=== PATIENT | male | born 1965 | race Caucasian/White ===

== ENCOUNTER 2017-01-14 20:14 | Inpatient (IN) | payer OTHER ==
[~2017-01-14] VITALS: Ht 157.5 cm; Wt 55.8 kg
[~2017-01-14 20:14] MED LIST: AERONEB GO NEB1 EACH MC; AMOX TR-K CLV1 EAC4 PO; COMBIVENT RESPIM4 GM IH; Chronulac,Cephulac,E PO; DILAUDID2 MG PO; DISKETS40 MG PO; DOXYCYCLINE HY100 M3 PO; DUONEB 2.5-0.5 M3 ML AEROSOL; FLOVENT 22120 INHALA IH; KLONOPIN2 MG PO; METHADONE10 MG PO; Naprosyn PO; OXYCODONE30 MG PO; OXYCONTIN30 MG PO; PLAVIX75 MG PO; PREDNISONE10 MG PO; PriLOSEC PO; Valium PO; XANAX2 MG PO; Z-QUIL PO
[2017-01-14 21:16] LABS: BASE EXCESS -1.2 mEq/L (-3 to +3); BICARBONATE 24.8 mEq/L (22-26); CARBOXY HGB 4.5 % (0-5); COMMENTS - BLOOD GASES C+; DEVICE NC; METHEMOGLOBIN 1.4 % (0-1.5); O2 FLOW 2 L/MIN; PCO2 45 mm Hg (35-45); PO2 42 mm Hg (80-100); SITE LB; pH 7.35 (7.35-7.45)
[2017-01-14 21:21] LABS: HEMATOCRIT 50.6 % (38.0-50.0); MCH 29.9 PG (29.0-34.0); MCV 99.6 FL (86-99); MEAN PLAT.VOLUME 9.8 uM^3 (9.0-12.4); PLATELET COUNT 501 K/uL (156-360); RBC DIS.WIDTH-CV 13.7 % (11.8-14.6); RBC DIS.WIDTH-SD 49.3 % (39-53); RED BLOOD COUNT 5.08 M/uL (4.00-5.50); WHITE BLOOD COUNT 16.5 K/uL (4.1-10.2)
[2017-01-14 21:24] LABS: EOSINOPHIL (%) 0 % (0-5); IMMATURE GRANULOCYTE (%) 0.2 % (0.0-0.7); IMMATURE GRANULOCYTE COUNT 0.3 K/uL; MONOCYTE (%) 7.4 % (3-12); MONOCYTE COUNT 1.2 K/uL (0-0.8); NEUTROPHIL (%) 86.3 % (45-76); NEUTROPHIL COUNT 14.2 K/uL (1.8-6.4)
[2017-01-14 21:48] LABS: CHLORIDE 100 mEq/L (99-109); POTASSIUM 4.6 mEq/L (3.7-5.4); SODIUM 144 mEq/L (136-147)
[2017-01-14 21:50] LABS: GLUCOSE 192 mg/dL (70-99)
[2017-01-14 21:51] LABS: ANION GAP 20 MEQ/L (2-14)
[2017-01-14 21:52] LABS: TOTAL BILIRUBIN 0.5 mg/dL (0.0-1.0)
[2017-01-14 21:53] LABS: SERUM ETHYL ALCOHOL < 10 mg/dL
[2017-01-14 21:54] LABS: ALKALINE PHOSPHATASE 101 IU/L (3-129); GFR ESTIMATE (CALCULATED) 57 mL/min/
[2017-01-14 21:56] LABS: UREA NITROGEN (BUN) 24 mg/dL (9-23)
[2017-01-14 21:57] LABS: SALICYLATE < 5.0 MG/DL (15-30)
[2017-01-14 21:58] LABS: CREATINE KINASE 960 IU/L (1-294); TOTAL CK 960 IU/L (1-294)
[2017-01-14 22:03] LABS: CK-MB 10.3 ng/mL (0.0-4.9)
[2017-01-14 23:06] LABS: ADD MEDTOX COMMENT Y; AMPHETAMINE NEGATIVE (500 ng/mL); BARBITURATES NEGATIVE (200 ng/mL); BENZODIAZEPINES PRESUMPTIVE POSITIVE (150 ng/mL); COCAINE PRESUMPTIVE POSITIVE (150 ng/mL); INTERNAL CONTROLS VALID? YES; METHADONE PRESUMPTIVE POSITIVE (200 ng/mL); METHAMPHETAMINE NEGATIVE (500 ng/mL); OPIATES (MORPHINE) PRESUMPTIVE POSITIVE (100 ng/mL); OXYCODONE PRESUMPTIVE POSITIVE (100 ng/mL); PHENCYCLIDINE NEGATIVE (25 ng/mL); PROPOXYPHENE NEGATIVE (300 ng/mL); THC CANNABINOIDS NEGATIVE (50 ng/mL); TRICYCLIC ANTIDEPRESSANTS NEGATIVE (300 ng/mL)
[2017-01-15] VITALS (9 sets, daily range): BP systolic 111–149; BP diastolic 56–94
[2017-01-15 01:43] LABS: TROP-I INTERPRETATION NEGATIVE; TROPONIN-I 0.02 ng/mL (0.0-0.30)
[2017-01-15 04:27] LABS: BENZODIAZEPINES, URINE SCREEN POSITIVE (200 ng/mL)
[2017-01-15] MEDS ORDERED: OXYCODONE HCL10 MG PO (05:08)
[2017-01-15] MEDS ORDERED: KLONOPIN2 MG PO (05:10)
[2017-01-15] MEDS ORDERED: METHADONE1 MG/1 ML PO (05:13)
[2017-01-15 06:51] LABS: METH RESISTANT S AUREUS PCR NEGATIVE (NEGATIVE)
[2017-01-15 06:52] LABS: PROBE CHECK PASS; SPECIMEN PROCESSING CONTROL PASS
[2017-01-15 07:39] LABS: HEMATOCRIT 50.9 % (38.0-50.0); MCHC 31.6 G/DL (30.0-36.0); MCV 98.1 FL (86-99); MEAN PLAT.VOLUME 10.1 uM^3 (9.0-12.4); PLATELET COUNT 405 K/uL (156-360); RBC DIS.WIDTH-CV 13.5 % (11.8-14.6); RBC DIS.WIDTH-SD 48.1 % (39-53); RED BLOOD COUNT 5.19 M/uL (4.00-5.50)
[2017-01-15 08:28] LABS: TROP-I INTERPRETATION NEGATIVE; TROPONIN-I 0.19 ng/mL (0.0-0.30)
[2017-01-15 08:35] LABS: ALKALINE PHOSPHATASE 91 IU/L (3-129); ANION GAP 8 MEQ/L (2-14); CHLORIDE 105 MEQ/L (99-109); GFR ESTIMATE (CALCULATED) > 59 mL/min/; GLUCOSE 113 mg/dL (70-99); POTASSIUM 6.5 MEQ/L (3.7-5.4); SAMPLE HEMOLYSIS CHECK 0; SAMPLE ICTERIC CHECK 0; SAMPLE LIPEMIA CHECK 0; SODIUM 141 MEQ/L (136-147); TOTAL BILIRUBIN 0.4 MG/DL (0.0-1.0); UREA NITROGEN (BUN) 17 mg/dL (9-23)
[2017-01-15 13:18] LABS: TROP-I INTERPRETATION NEGATIVE; TROPONIN-I 0.28 ng/mL (0.0-0.30)
[2017-01-15 15:25] LABS: ANION GAP 6 MEQ/L (2-14); CHLORIDE 105 MEQ/L (99-109); GFR ESTIMATE (CALCULATED) > 59 mL/min/; SAMPLE HEMOLYSIS CHECK 0; SAMPLE ICTERIC CHECK 0; SAMPLE LIPEMIA CHECK 0; SODIUM 141 MEQ/L (136-147); UREA NITROGEN (BUN) 14 mg/dL (9-23)
[2017-01-15 15:33] LABS: GLUCOSE 224 mg/dL (70-99); POTASSIUM 4.7 MEQ/L (3.7-5.4)
[2017-01-16] VITALS (9 sets, daily range): BP systolic 98–168; BP diastolic 58–94
[2017-01-16 06:53] LABS: HEMATOCRIT 39.4 % (38.0-50.0); INSTRUMENT ABS NEUTROPHIL CT 14.6 K/uL; MCH 29.5 PG (29.0-34.0); MCV 95.2 FL (86-99); MEAN PLAT.VOLUME 10.1 uM^3 (9.0-12.4); PLATELET COUNT 363 K/uL (156-360); RBC DIS.WIDTH-SD 45.4 % (39-53); WHITE BLOOD COUNT 16.2 K/uL (4.1-10.2)
[2017-01-16 07:11] LABS: RED BLOOD COUNT 4.14 M/uL (4.00-5.50)
[2017-01-16 07:32] LABS: ALKALINE PHOSPHATASE 65 IU/L (3-129); ANION GAP 8 MEQ/L (2-14); CHLORIDE 106 MEQ/L (99-109); GFR ESTIMATE (CALCULATED) > 59 mL/min/; SAMPLE HEMOLYSIS CHECK 0; SAMPLE ICTERIC CHECK 0; SAMPLE LIPEMIA CHECK 0; SODIUM 146 MEQ/L (136-147); TOTAL BILIRUBIN 0.4 MG/DL (0.0-1.0); UREA NITROGEN (BUN) 13 mg/dL (9-23)
[2017-01-16 07:43] LABS: GLUCOSE 111 mg/dL (70-99); POTASSIUM 3.6 MEQ/L (3.7-5.4)
[2017-01-16 08:07] LABS: ABS NEUTROPHIL COUNT 15.1; BAND NEUTROPHILS 18.3 % (0-8.0); EOSINOPHIL ABS CT 0; LYMPHOCYTES 4.3 % (15.0-45.0); PLAT.SUFFICIENCY ADEQUATE; POLYCHROMASIA 1+; SEG.NEUTROPHILS 74.8 % (46.0-76.0); SMUDGE CELLS 4.3
[2017-01-17] VITALS (8 sets, daily range): BP systolic 97–148; BP diastolic 52–94
[2017-01-17 11:05] LABS: BASE EXCESS 10.5 mEq/L (-3 to +3); CARBOXY HGB 2.3 % (0-5); METHEMOGLOBIN 1.8 % (0-1.5); pH 7.35 (7.35-7.45)
[2017-01-17 11:06] LABS: BICARBONATE 39.2 mEq/L (22-26); COMMENTS - BLOOD GASES A+C+; DEVICE NC; O2 FLOW 6 L/MIN; PCO2 71 mm Hg (35-45); PO2 86 mm Hg (80-100); SITE RR
[2017-01-17 11:12] LABS: POINT-OF-CARE METER ID UU13113698
[2017-01-17 11:16] LABS: EOSINOPHIL (%) 0 % (0-5); HEMATOCRIT 45.2 % (38.0-50.0); IMMATURE GRANULOCYTE (%) 0.8 % (0.0-0.7); IMMATURE GRANULOCYTE COUNT 0.2 K/uL; INSTRUMENT ABS NEUTROPHIL CT 17.5 K/uL; LYMPHOCYTE COUNT 1.7 K/uL (1.0-2.8); MCH 29.4 PG (29.0-34.0); MCHC 29.6 G/DL (30.0-36.0); MCV 99.1 FL (86-99); MEAN PLAT.VOLUME 9.2 uM^3 (9.0-12.4); MONOCYTE (%) 4.8 % (3-12); NEUTROPHIL (%) 85.9 % (45-76); NEUTROPHIL COUNT 17.5 K/uL (1.8-6.4); PLATELET COUNT 397 K/uL (156-360); RBC DIS.WIDTH-CV 13.2 % (11.8-14.6); RBC DIS.WIDTH-SD 48.2 % (39-53); RED BLOOD COUNT 4.56 M/uL (4.00-5.50); WHITE BLOOD COUNT 20.4 K/uL (4.1-10.2)
[2017-01-17 11:28] LABS: CHLORIDE 103 mEq/L (99-109); POTASSIUM 3.1 mEq/L (3.7-5.4); SODIUM 147 mEq/L (136-147)
[2017-01-17 11:30] LABS: GLUCOSE 150 mg/dL (70-99)
[2017-01-17 11:31] LABS: ANION GAP 10 MEQ/L (2-14)
[2017-01-17 11:33] LABS: ALKALINE PHOSPHATASE 82 IU/L (3-129)
[2017-01-17 11:34] LABS: GFR ESTIMATE (CALCULATED) > 59 mL/min/; TOTAL BILIRUBIN 0.3 mg/dL (0.0-1.0)
[2017-01-17 11:35] LABS: UREA NITROGEN (BUN) 17 mg/dL (9-23)
[2017-01-17 11:40] LABS: TROP-I INTERPRETATION NEGATIVE; TROPONIN-I 0.14 ng/mL (0.0-0.30)
[2017-01-17 13:26] LABS: HEMOGLOBIN 11.6 (12.5-16.6); PCO2 69 mm Hg (35-45); PO2 89 mm Hg (80-100); pH 7.39 (7.35-7.45)
[2017-01-17 13:27] LABS: BICARBONATE 41.8 mEq/L (22-26); CARBOXY HGB 1.7 % (0-5); COMMENTS - BLOOD GASES A+C+; DEVICE NC; METHEMOGLOBIN 1.5 % (0-1.5); O2 FLOW 3 L/MIN; SITE RR
[2017-01-17] MEDS ORDERED: DUONEB 2.5-0.5 M3 ML AEROSOL (16:34)
[2017-01-17] MEDS ORDERED: METHADONE10 MG PO (16:35)
[2017-01-17 20:31] LABS: BICARBONATE 43.1 mEq/L (22-26); CARBOXY HGB 2.2 % (0-5); COMMENTS - BLOOD GASES C+; DEVICE NC; METHEMOGLOBIN 1.8 % (0-1.5); O2 FLOW 4 L/MIN; PCO2 68 mm Hg (35-45); PO2 51 mm Hg (80-100); SITE LR; TOTAL RESP RATE 24 resp/min; pH 7.41 (7.35-7.45)
[2017-01-17 21:25] LABS: POINT-OF-CARE METER ID UU13113781
[2017-01-18 03:16] VITALS: BP 155/70
[2017-01-18 08:42] LABS: INTERNAL CONTROL VALID? YES
[2017-01-18 09:00] VITALS: BP 156/87
[2017-01-18 09:03] LABS: ANION GAP 6 MEQ/L (2-14); CHLORIDE 99 MEQ/L (99-109); EOSINOPHIL (%) 0.1 % (0-5); HEMATOCRIT 37.1 % (38.0-50.0); IMMATURE GRANULOCYTE (%) 0.4 % (0.0-0.7); IMMATURE GRANULOCYTE COUNT 0.1 K/uL; INSTRUMENT ABS NEUTROPHIL CT 13.2 K/uL; LYMPHOCYTE COUNT 1.7 K/uL (1.0-2.8); MCH 29.7 PG (29.0-34.0); MCHC 30.5 G/DL (30.0-36.0); MCV 97.4 FL (86-99); MONOCYTE (%) 7.4 % (3-12); MONOCYTE COUNT 1.2 K/uL (0-0.8); NEUTROPHIL (%) 81.5 % (45-76); NEUTROPHIL COUNT 13.2 K/uL (1.8-6.4); POTASSIUM 3.3 MEQ/L (3.7-5.4); RBC DIS.WIDTH-CV 13.4 % (11.8-14.6); RBC DIS.WIDTH-SD 47.6 % (39-53); RED BLOOD COUNT 3.81 M/uL (4.00-5.50); SAMPLE HEMOLYSIS CHECK 0; SAMPLE ICTERIC CHECK 0; SAMPLE LIPEMIA CHECK 0; SODIUM 143 MEQ/L (136-147); TOTAL BILIRUBIN 0.5 MG/DL (0.0-1.0); WHITE BLOOD COUNT 16.2 K/uL (4.1-10.2)
[2017-01-18 09:05] LABS: ALKALINE PHOSPHATASE 61 IU/L (3-129); GFR ESTIMATE (CALCULATED) > 59 mL/min/; UREA NITROGEN (BUN) 13 mg/dL (9-23)
[2017-01-18 09:09] LABS: GLUCOSE 99 mg/dL (70-99)
[2017-01-18 09:28] LABS: MEAN PLAT.VOLUME 9.4 uM^3 (9.0-12.4); PLAT.SUFFICIENCY ADEQUATE
[2017-01-18 09:29] LABS: PLATELET COUNT 271 K/uL (156-360)
[2017-01-18 13:10] VITALS: BP 159/87
[2017-01-18 17:40] VITALS: BP 136/64
[2017-01-18 20:00] VITALS: BP 169/93
[2017-01-18 23:09] VITALS: BP 152/82
[2017-01-19 04:54] VITALS: BP 157/89
[2017-01-19 07:05] LABS: EOSINOPHIL (%) 0.7 % (0-5); EOSINOPHIL COUNT 0.1 K/uL (0-0.3); HEMATOCRIT 43.2 % (38.0-50.0); IMMATURE GRANULOCYTE (%) 0.5 % (0.0-0.7); IMMATURE GRANULOCYTE COUNT 0.1 K/uL; INSTRUMENT ABS NEUTROPHIL CT 11.5 K/uL; LYMPHOCYTE COUNT 1.7 K/uL (1.0-2.8); MCH 29.1 PG (29.0-34.0); MCV 93.7 FL (86-99); MONOCYTE (%) 8.8 % (3-12); MONOCYTE COUNT 1.3 K/uL (0-0.8); NEUTROPHIL (%) 78.1 % (45-76); NEUTROPHIL COUNT 11.5 K/uL (1.8-6.4); PLATELET COUNT 270 K/uL (156-360); RBC DIS.WIDTH-CV 13.4 % (11.8-14.6); RBC DIS.WIDTH-SD 45.9 % (39-53); WHITE BLOOD COUNT 14.7 K/uL (4.1-10.2)
[2017-01-19 07:22] LABS: RED BLOOD COUNT 4.61 M/uL (4.00-5.50)
[2017-01-19 07:27] LABS: ANION GAP 8 MEQ/L (2-14); CHLORIDE 99 MEQ/L (99-109); GFR ESTIMATE (CALCULATED) > 59 mL/min/; GLUCOSE 72 mg/dL (70-99); SAMPLE HEMOLYSIS CHECK 0; SAMPLE ICTERIC CHECK 0; SAMPLE LIPEMIA CHECK 0; SODIUM 139 MEQ/L (136-147); UREA NITROGEN (BUN) 11 mg/dL (9-23)
[2017-01-19 07:38] LABS: POTASSIUM 4.1 MEQ/L (3.7-5.4)
[2017-01-19 08:30] VITALS: BP 154/88
[2017-01-19 12:00] VITALS: BP 156/96
[2017-01-19 15:30] VITALS: BP 148/87
[2017-01-19 21:00] VITALS: BP 168/96
[2017-01-20 00:54] VITALS: BP 168/95
[2017-01-20 05:52] VITALS: BP 132/85
[2017-01-20 07:10] VITALS: BP 131/81
[2017-01-20 11:37] VITALS: BP 130/74
[2017-01-20 15:29] VITALS: BP 160/82
[2017-01-20 19:30] VITALS: BP 147/77
[2017-01-21] VITALS: BP 139/94
[2017-01-21 03:45] VITALS: BP 135/73
[2017-01-21 07:48] VITALS: BP 124/71
[2017-01-21 09:52] LABS: HEMATOCRIT 45.1 % (38.0-50.0); MCHC 30.8 G/DL (30.0-36.0); MEAN PLAT.VOLUME 9.5 uM^3 (9.0-12.4); PLATELET COUNT 319 K/uL (156-360); RBC DIS.WIDTH-CV 13.5 % (11.8-14.6); RBC DIS.WIDTH-SD 46.9 % (39-53)
[2017-01-21 09:56] LABS: WHITE BLOOD COUNT 9.7 K/uL (4.1-10.2)
[2017-01-21 10:00] LABS: ANION GAP 6 MEQ/L (2-14); CHLORIDE 97 MEQ/L (99-109); GFR ESTIMATE (CALCULATED) > 59 mL/min/; POTASSIUM 4.9 MEQ/L (3.7-5.4); SAMPLE HEMOLYSIS CHECK 0; SAMPLE ICTERIC CHECK 0; SAMPLE LIPEMIA CHECK 0; SODIUM 140 MEQ/L (136-147); UREA NITROGEN (BUN) 15 mg/dL (9-23)
[2017-01-21 10:22] LABS: GLUCOSE 112 mg/dL (70-99)
[2017-01-21 11:29] VITALS: BP 116/69
[2017-01-21 15:36] VITALS: BP 135/61
[2017-01-21 19:29] VITALS: BP 138/76
[2017-01-22] VITALS (7 sets, daily range): BP systolic 103–154; BP diastolic 53–80
[2017-01-23 00:12] VITALS: BP 125/65
[2017-01-23 04:16] VITALS: BP 127/73
[2017-01-23 07:46] VITALS: BP 119/72
[2017-01-23] MEDS ORDERED: AMOX TR-K CLV1 EAC4 PO (10:14)
[2017-01-23 11:26] VITALS: BP 153/79
[2017-01-23 15:52] VITALS: BP 126/73
== END 2017-01-23 16:08 | DRG 917 ==
LOC: EME → EDBD 20:14 → EDOF 01-15 00:42 → 5EAST 01-15 00:42 → 4WEST 01-15 00:42 → 4EAST 01-15 00:42 → 4WEST 01-15 04:35 → 5EAST 01-16 11:23 → 4WEST 01-16 23:21 → 4EAST 01-16 23:38 → 3EAST 01-22 00:01
PROVIDERS: Emergency Medicine; Hospitalist; Internal Medicine; Internal Medicine Pulmonary Disease; Physician Assistant
DX: T42.4X1A Poisoning by benzodiazepines, accidental (unintentional), initial encounter (principal); G93.41 Metabolic encephalopathy; R65.20 Severe sepsis without septic shock; J69.0 Pneumonitis due to inhalation of food and vomit; J96.02 Acute respiratory failure with hypercapnia; J96.01 Acute respiratory failure with hypoxia; A41.9 Sepsis, unspecified organism; J90 Pleural effusion, not elsewhere classified; T40.601A Poisoning by unspecified narcotics, accidental (unintentional), initial encounter; K50.90 Crohn's disease, unspecified, without complications; Z68.1 Body mass index [BMI] 19.9 or less, adult; N17.9 Acute kidney failure, unspecified; M62.82 Rhabdomyolysis; R56.9 Unspecified convulsions; J44.1 Chronic obstructive pulmonary disease with (acute) exacerbation; G89.4 Chronic pain syndrome; M06.9 Rheumatoid arthritis, unspecified; M45.9 Ankylosing spondylitis of unspecified sites in spine; B18.2 Chronic viral hepatitis C; E87.5 Hyperkalemia; R63.6 Underweight; F14.90 Cocaine use, unspecified, uncomplicated; N18.9 Chronic kidney disease, unspecified; Z99.81 Dependence on supplemental oxygen; G47.00 Insomnia, unspecified; E87.2 Acidosis; D72.829 Elevated white blood cell count, unspecified; T38.0X5A Adverse effect of glucocorticoids and synthetic analogues, initial encounter; F17.210 Nicotine dependence, cigarettes, uncomplicated
CPT/HCPCS: 36600; 70450; 70551; 71010; 71020; 71275; 80048; 80048 91; 80053; 82140; 82550; 82553; 82803; 82948; 83605; 84146; 84484; 84999; 85025; 85027; 87040; 87070; 87205; 87449; 87641; 93005; 94640; 94640 76; 94760; 94799; 95819; 97530 GO; 99202; 99281; 99285; C9113; G0480; J0456; J1644; J2310; J2405; J2543; J2920; J2930; J3370; J7030; J7040; J7050